=== PATIENT | female | born 1945 | race Hispanic/Latino ===

== ENCOUNTER 2017-05-24 18:30 | Emergency (ER) | payer MEDICARE ==
[~2017-05-24 18:30] MED LIST: ACET-2782 PO; AEC81 PO; ALLO100T PO; AMLO10TA2 PO; B12 PO; CALC-322 PO; CALC0.253 PO; CARV25TA PO; CLON0.1T PO; D3 PO; FOLI1TAB61 PO; INSLAN SQ; IRON PO; LEVO50TA11 PO; LIOT5TAB8 PO; LOSA50TA37 PO; LUBI24CA2 PO; METOPROLOL PO; OMEP20TA25 PO; PIOG15TA66 PO; RALO60TA13 PO; ROSU10TA PO; TORS20TA4 PO; TROS60CA4 PO; [UNRECOGNIZED DRUG - CODE] SQ
[2017-05-24 19:01] LABS: BASOPHILS % (AUTO) 0.2 % (0.0-5.0); HEMATOCRIT 33.3 % (36-48); LYMPHOCYTES % (AUTO) 6.9 % (21.0-51.0); MEAN CORPUSCULAR HEMOGLOBIN 33.6 pg (27.0-33.0); MEAN CORPUSCULAR HGB CONC 34.3 g/dL (32.0-36.0); MEAN CORPUSCULAR VOLUME 97.8 fL (79-99); MONOCYTES % (AUTO) 4.1 % (3.0-13.0); NEUTROPHILS % (AUTO) 88.8 % (40.0-77.0); PLATELET COUNT (AUTO) 153 K/uL (130-400); RED BLOOD CELL COUNT(AUTO) 3.41 MIL/uL (4.00-5.50); RED CELL DISTRIBUTION WIDTH 15.9 % (11.0-15.5); WHITE BLOOD COUNT (AUTO) 9.9 K/uL (4.8-10.8)
[2017-05-24 19:22] LABS: ALBUMIN 2.9 g/dL (3.5-5.0); BILIRUBIN,TOTAL 0.3 mg/dL (0.2-1.0); POTASSIUM 3.8 mmol/L (3.5-5.1); TOTAL PROTEIN, SERUM 6.1 g/dL (6.0-8.3)
[2017-05-24 19:31] LABS: CREATINE KINASE MB < 0.5 ng/mL (0.5-3.6); CREATINE KINASE, TOTAL 114 U/L (21-232); MYOGLOBIN 288 ng/mL (10-92); TROPONIN I < 0.04 ng/mL (0.00-0.06)
[2017-05-24] MEDS ORDERED: INSULIN HUMULIN R 100 UNIT/ML 3ML ONE (19:40)
== END 2017-05-25 00:09 | disposition home or self-care (01) ==
LOC: EDH 18:30
DX: I10 Essential (primary) hypertension (principal); E11.65 Type 2 diabetes mellitus with hyperglycemia; M10.9 Gout, unspecified; E78.5 Hyperlipidemia, unspecified; E07.9 Disorder of thyroid, unspecified; M19.90 Unspecified osteoarthritis, unspecified site; Z79.4 Long term (current) use of insulin; Z88.8 Allergy status to other drugs, medicaments and biological substances; Z98.890 Other specified postprocedural states
CPT/HCPCS: 36415; 70450; 72125; 80053; 82009; 82550; 82553; 82948 ×2; 83874; 84484; 85025; 93005; 96374; 99285; J1815

== ENCOUNTER → 2019-06-29 | Outpatient (CLI) | payer MEDICARE ==
[~2019-06-29] MED LIST changes: +ACET-2113 PO; -ACET-2782 PO; -AMLO10TA2 PO; +AMLO10TA7 PO; +LIOT5TAB11 PO; -LIOT5TAB8 PO; -LOSA50TA37 PO; +LOSA50TA64 PO; -ROSU10TA PO; +ROSU10TA22 PO
== END | disposition home or self-care (01) ==
LOC: RAH 09:22
PROVIDERS: ATTEND Urology
DX: N18.9 Chronic kidney disease, unspecified (principal); N30.20 Other chronic cystitis without hematuria
CPT/HCPCS: 76770

== ENCOUNTER → 2020-08-30 | Outpatient (CLI) | payer MEDICARE ==
[~2020-08-30] MED LIST changes: +AMLO-258 PO; -AMLO10TA7 PO
== END | disposition home or self-care (01) ==
LOC: RAH 14:56
PROVIDERS: ATTEND Family Medicine
DX: I70.293 Other atherosclerosis of native arteries of extremities, bilateral legs (principal)
CPT/HCPCS: 93925

== ENCOUNTER → 2021-01-11 | Outpatient (CLI) | payer MEDICARE, OTHER | END | disposition home or self-care (01) | LOC: RAH 11:04 | PROVIDERS: ATTEND Internal Medicine Cardiovascular Disease | DX: Z13.6 Encounter for screening for cardiovascular disorders (principal); I25.9 Chronic ischemic heart disease, unspecified | CPT/HCPCS: 75571 ==

== ENCOUNTER → 2021-01-24 | Outpatient (CLI) | payer MEDICARE | END | disposition home or self-care (01) | LOC: SHCH 07:48 | PROVIDERS: ATTEND Internal Medicine Cardiovascular Disease | DX: I65.23 Occlusion and stenosis of bilateral carotid arteries (principal); R09.89 Other specified symptoms and signs involving the circulatory and respiratory systems | CPT/HCPCS: 93880 ==

== ENCOUNTER → 2021-02-27 | Outpatient (CLI) | payer MEDICARE ==
[~2021-02-27] MED LIST changes: +REGADENOSON 0.4 MG/5 ML PF SYG IVP SCH
== END | disposition home or self-care (01) ==
LOC: SHCH 09:10
PROVIDERS: ATTEND Internal Medicine Cardiovascular Disease
DX: I25.10 Atherosclerotic heart disease of native coronary artery without angina pectoris (principal); R07.89 Other chest pain
CPT/HCPCS: 78452; 93017; 96374; A9500 ×2; J2785

== ENCOUNTER → 2021-12-05 | Outpatient (CLI) | payer MEDICARE ==
[~2021-12-05] MED LIST changes: +OMEP20TA20 PO; -OMEP20TA25 PO; -REGADENOSON 0.4 MG/5 ML PF SYG IVP SCH
== END | disposition home or self-care (01) ==
LOC: SHCH 14:47
PROVIDERS: ATTEND Internal Medicine Cardiovascular Disease
DX: I87.2 Venous insufficiency (chronic) (peripheral) (principal)
CPT/HCPCS: 93970